=== PATIENT | male | born 2000 | race Caucasian/White ===

== ENCOUNTER 2025-06-14 08:32 | Outpatient (CLI) | payer MEDICAID, SELFPAY ==
--- NOTE | 2025-06-14 08:47 | XR_ITS ---
WS: [id number] Exam: XR foot RT min 3V* [id number] Date/Time of Exam: 06/14/2025 8:47 AM Reason For Exam: PLANTAR FASCITIS No acute fracture. The joints are preserved. Normal soft tissues. XR/XR foot RT min 3V* [id number] IMPRESSION: 1. Negative RIGHT foot.
== END 2025-06-14 08:33 | disposition home or self-care (01) ==
LOC: RAD 08:39
PROVIDERS: PCP Family Medicine; Visit Provider Family Medicine
DX: M72.2 Plantar fascial fibromatosis (principal)
CPT/HCPCS: 73630